=== PATIENT | female | born 1975 | race African-American/Black ===

== ENCOUNTER 2019-09-06 08:11 | Emergency (ER) | payer OTHER ==
[~2019-09-06] VITALS: Ht 167.6 cm; Wt 86.2 kg
--- NOTE | 2019-09-06 07:15 | NUR ---
Rapid resp note:Called for unresponsive pt in outpatient waiting room. Upon arrival, Dr Goss present holding airway open and pt unresponsive to sternal rub. Strong pulse present 100%NRB placed and pt quickly transferred to cart and taken to ER where they started IV and gave Narcan IV. Pt proceeded to wake up, DAILY, able to state name and date. ER will resume care
--- NOTE | 2019-09-06 08:23 | PHYS DOC ---
Adult General Chief Complaint Chief Complaint: ALTERED MENTAL STATUS HPI HPI Patient is a 43 year old female who brought in because of unresponsiveness. Patient had dental procedure yesterday and took pain medication last night. Patient brought her mother to GI lab for procedure and was sitting in the chair in the waiting area and became unresponsive with O2 sat of 80% and oxygen was started. Patient was unresponsive and had O2 sat of 100% on facial mask. Review of Systems Review of Systems Unable to obtain because of unresponsiveness Current Medications Current Medications Current Medications Medications (Trade) Dose Ordered Sig/Jaxon Start Time Stop Time Status Last Admin Dose Admin Naloxone HCl (Narcan) 0.4 mg 1X ONCE 09/06/19 10:00 09/06/19 10:01 DC 09/06/19 10:17 0.4 MG Sodium Chloride 1,000 ml @ 1,000 mls/hr 1X ONCE 09/06/19 09:30 09/06/19 10:29 DC 09/06/19 09:47 1,000 MLS/HR Allergies Allergies Allergies Coded Allergies Type Severity Reaction Last Updated Verified No Known Drug Allergies 09/06/19 No Physical Exam Physical Exam Constitutional: Well nourished, unresponsive. HENT: Normocephalic, atraumatic. Eyes: Pinpoint pupils. Neck: Normal range of motion, no tenderness, supple, no stridor. [] Cardiovascular:Heart rate regular rhythm, no murmur [] Lungs & Thorax: Bilateral breath sounds clear to auscultation [] Abdomen: Bowel sounds normal, soft. Skin: Warm, dry, no erythema, no rash. [] Extremities: No obvious deformity Neurologic: Unresponsive, no respond to painful stimuli Psychologic: Unable to evaluate Current Patient Data Vital Signs Vital Signs Date Time Temp Pulse Resp B/P (MAP) Pulse Ox O2 Delivery O2 Flow Rate FiO2 09/06/19 10:00 94 14 98 09/06/19 08:11 97.0 133/82 (99) NonRebreather Mask 15.0 97.0 Lab Values Laboratory Tests Test 09/06/19 08:14 09/06/19 08:15 09/06/19 08:55 09/06/19 10:43 Glucose (Fingerstick) 285 mg/dL (70-99) H 94 mg/dL (70-99) White Blood Count 11.2 x10^3/uL (4.0-11.0) H Red Blood Count 5.08 x10^6/uL (3.50-5.40) Hemoglobin 9.6 g/dL (12.0-15.5) L Hematocrit 32.3 % (36.0-47.0) L Mean Corpuscular Volume 64 fL (79-100) L Mean Corpuscular Hemoglobin 19 pg (25-35) L Mean Corpuscular Hemoglobin Concent 30 g/dL (31-37) L Red Cell Distribution Width 19.6 % (11.5-14.5) H Platelet Count 662 x10^3/uL (140-400) H Neutrophils (%) (Auto) 57 % (31-73) Lymphocytes (%) (Auto) 37 % (24-48) Monocytes (%) (Auto) 3 % (0-9) Eosinophils (%) (Auto) 2 % (0-3) Basophils (%) (Auto) 1 % (0-3) Neutrophils # (Auto) 6.4 x10^3/uL (1.8-7.7) Lymphocytes # (Auto) 4.1 x10^3/uL (1.0-4.8) Monocytes # (Auto) 0.4 x10^3/uL (0.0-1.1) Eosinophils # (Auto) 0.2 x10^3/uL (0.0-0.7) Basophils # (Auto) 0.1 x10^3/uL (0.0-0.2) Platelet Estimate Increased (ADEQUATE) Hypochromasia Present Microcytosis Present Sodium Level 141 mmol/L (136-145) Potassium Level 3.6 mmol/L (3.5-5.1) Chloride Level 103 mmol/L (98-107) Carbon Dioxide Level 26 mmol/L (21-32) Anion Gap 12 (6-14) Blood Urea Nitrogen 7 mg/dL (7-20) Creatinine 1.1 mg/dL (0.6-1.0) H Estimated GFR (Cockcroft-Gault) 54.0 BUN/Creatinine Ratio 6 (6-20) Glucose Level 313 mg/dL (70-99) H Calcium Level 8.9 mg/dL (8.5-10.1) Magnesium Level 2.2 mg/dL (1.8-2.4) Total Bilirubin 0.1 mg/dL (0.2-1.0) L Aspartate Amino Transferase (AST) 17 U/L (15-37) Alanine Aminotransferase (ALT) 12 U/L (14-59) L Alkaline Phosphatase 78 U/L (46-116) Creatine Kinase 267 U/L (26-192) H Troponin I Quantitative < 0.017 ng/mL (0.000-0.055) Total Protein 7.6 g/dL (6.4-8.2) Albumin 3.8 g/dL (3.4-5.0) Albumin/Globulin Ratio 1.0 (1.0-1.7) Ethyl Alcohol Level < 10 mg/dL (0-10) Urine Collection Type U cath Urine Color Yellow Urine Clarity Clear Urine pH 7.0 Urine Specific [place] 1.015 Urine Protein Negative mg/dL (NEG-TRACE) Urine Glucose (UA) 500 mg/dL (NEG) Urine Ketones (Stick) Negative mg/dL (NEG) Urine Blood Negative (NEG) Urine Nitrite Negative (NEG) Urine Bilirubin Negative (NEG) Urine Urobilinogen Dipstick 0.2 mg/dL (0.2 mg/dL) Urine Leukocyte Esterase Negative (NEG) Urine RBC Occ /HPF (0-2) Urine WBC 1-4 /HPF (0-4) Urine Squamous Epithelial Cells Many /LPF Urine Bacteria Few /HPF (0-FEW) Urine Hyaline Casts Moderate /HPF Urine Mucus Marked /LPF Urine Opiates Screen Neg (NEG) Urine Methadone Screen Neg (NEG) Urine Barbiturates Neg (NEG) Urine Phencyclidine Screen Neg (NEG) Urine Amphetamine/Methamphetamine Neg (NEG) Urine Benzodiazepines Screen Neg (NEG) Urine Cocaine Screen Neg (NEG) Urine Cannabinoids Screen Neg (NEG) Urine Ethyl Alcohol Neg (NEG) Laboratory Tests 09/06/19 08:15 Laboratory Tests 09/06/19 08:15 EKG EKG [] Radiology/Procedures Radiology/Procedures [] Course & Med Decision Making Course & Med Decision Making Pertinent Labs reviewed. (See chart for details) Evaluation of patient in ER showed 43-year-old female patient brought in from outpatient clinic as a visitor because of unresponsive condition. Patient treated with Narcan in ER improvement of her condition and become alert and oriented. Labs showed blood sugar of 313 without history of diabetes mellitus. She also had hemoglobin of 9.6 and history of heavy vaginal bleeding. Patient was advised to follow-up with her primary care physician regarding her anemia and her glycemia. Patient was advised to stop taking Percocet and take over -the-counter Tylenol and ibuprofen as needed for pain. Patient was advised to continue amoxicillin given by her dentist. I've spoken with the patient and/or caregivers. I've explained the patient's condition, diagnosis and treatment plan based on information available to me at this time. I've answered the patient's and/or caregivers questions and addressed any concerns. The patient and/or caregivers have a good understanding the patient's diagnosis, condition and treatment plan as can be expected at this point. Vital signs have been stabilized. The patient's condition is stable for discharge from the emergency department. The patient will pursue further outpatient evaluation with her primary care provider or other designated consulting physician as outlined in the discharge instructions. Patient and/or caregivers are agreeable to this plan of care and follow-up instructions have been explained in detail. The patient and/or caregivers have received these instructions in written format and expressed understanding of these discharge instructions. The patient and her caregivers are aware that if any significant change in condition or worsening of symptoms should prompt him to immediately return to this of the closest emergency department. If an emergent department is not readily available I would encourage him to call 911. Dragon Disclaimer Dragon Disclaimer This electronic medical record was generated, in whole or in part, using a voice recognition dictation system. Departure Departure Impression: Primary Impression: Unresponsive episode Additional Impressions: Opiate overdose Hyperglycemia Anemia Disposition: HOME, SELF-CARE (at 1046) Referrals: BLANQUITA PRATHER MD (PCP) Patient Instructions: 1800 Calorie Diet for Diabetes Meal Planning, Diabetes an d Exercise-SportsMed, Diabetes and Foot Care, Hyperglycemia, Narcotic Overdose, Overdose, Accidental Additional Instructions: Drink plenty of liquids Follow-up with your primary care physician is a scheduled next week Return to ER if not getting better Do not take oxycodone Scripts Metformin Hcl (METFORMIN HCL) 500 Mg Tablet 500 MG PO BIDWMEALS for ANTI-DIABETIC, #60 TAB 0 Refills Prov: CHINO GRULLON MD 09/06/19 Critical Care Time Critical care time was 70 minutes exclusive of procedures. Problem Qualifiers Additional Impressions: Opiate overdose Encounter type: initial encounter Injury intent: accidental or unintentional Qualified Codes: T40.601A - Poisoning by unspecified narcotics, accidental (unintentional), initial encounter Anemia Anemia type: unspecified type Qualified Codes: D64.9 - Anemia, unspecified CHINO GRULLON MD Sep 06, 2019 08:23
[2019-09-06 08:28] LABS: BASO # 0.1 x10^3/uL (0.0-0.2); BASO % 1 % (0-3); EOS # 0.2 x10^3/uL (0.0-0.7); EOS % 2 % (0-3); HEMATOCRIT 32.3 % (36.0-47.0); HEMOGLOBIN 9.6 g/dL (12.0-15.5); LYMPH # 4.1 x10^3/uL (1.0-4.8); LYMPH % 37 % (24-48); MEAN CORPUSCULAR HEMOGLOBIN 19 pg (25-35); MEAN CORPUSCULAR HGB CONC 30 g/dL (31-37); MEAN CORPUSCULAR VOLUME 64 fL (79-100); MONO # 0.4 x10^3/uL (0.0-1.1); MONO % 3 % (0-9); NEUT # 6.4 x10^3/uL (1.8-7.7); NEUT % 57 % (31-73); PLATELET COUNT 662 x10^3/uL (140-400); RED BLOOD COUNT 5.08 x10^6/uL (3.50-5.40); RED CELL DISTRIBUTION WIDTH 19.6 % (11.5-14.5); WHITE BLOOD COUNT 11.2 x10^3/uL (4.0-11.0)
[2019-09-06] MEDS ORDERED: NALOXONE 0.4 MG/ML VIAL. IV ONE ×2 (08:30→10:00)
[2019-09-06] MEDS ORDERED: IV NORMAL SALINE 1000ML BAG 1,000 ML IV ONE ×2 (08:30→09:30)
[2019-09-06 08:38] LABS: CALCIUM 8.9 mg/dL (8.5-10.1); CREATININE 1.1 mg/dL (0.6-1.0); POTASSIUM 3.6 mmol/L (3.5-5.1)
[2019-09-06 08:45] LABS: ALBUMIN 3.8 g/dL (3.4-5.0); MAGNESIUM 2.2 mg/dL (1.8-2.4); TOTAL BILIRUBIN 0.1 mg/dL (0.2-1.0); TOTAL PROTEIN 7.6 g/dL (6.4-8.2)
[2019-09-06 09:10] LABS: BILIRUBIN,URINE NEGATIVE (NEG); CLARITY,URINE CLEAR; COLOR,URINE YELLOW; NITRITE,URINE NEGATIVE (NEG); PROTEIN,URINE NEGATIVE (NEG-TRACE); UROBILINOGEN,URINE 0.2 mg/dL (0.2 mg/dL)
[2019-09-06 09:20] LABS: HYALINE CASTS, URINE MODERATE /HPF; SQUAMOUS EPITHELIAL CELL,UR MANY /LPF
[2019-09-06 09:21] LABS: RBC,URINE OCC /HPF (0-2)
[2019-09-06 09:22] LABS: BACTERIA,URINE FEW /HPF (0-FEW)
[2019-09-06 09:30] LABS: BARBITURATES NEG (NEG); BENZODIAZEPINES NEG (NEG); CANNABINOIDS NEG (NEG); COCAINE NEG (NEG); METHADONE NEG (NEG); OPIATES NEG (NEG); PHENCYCLIDINE NEG (NEG)
[2019-09-06 09:36] LABS: AMPHETAMINE/METHAMPHETAMINE NEG (NEG)
[2019-09-06 10:30] VITALS: BP 165/72
[2019-09-06 10:44] LABS: PLT ESTIMATE INCREASED (ADEQUATE)
[2019-09-06 10:45] LABS: HYPOCHROMIA PRESENT; MICROCYTOSIS PRESENT
[2019-09-06] MEDS ORDERED: METF500T16 PO (10:48)
== END 2019-09-06 11:00 | disposition home or self-care (01) ==
LOC: ER 08:11
DX: T40.601A Poisoning by unspecified narcotics, accidental (unintentional), initial encounter (principal); R41.82 Altered mental status, unspecified; R73.9 Hyperglycemia, unspecified; D64.9 Anemia, unspecified; Y92.89 Other specified places as the place of occurrence of the external cause
CPT/HCPCS: 36415; 80053; 80307; 81001; 82550; 82962; 83735; 84484; 85025; 96361; 96374; 99291; G0480; J2310; J7030

== ENCOUNTER 2021-08-14 18:03 | Emergency (ER) | payer OTHER ==
[~2021-08-14] VITALS: Ht 157.5 cm; Wt 97.0 kg
[~2021-08-14 18:03] MED LIST: METF500T16 PO
[2021-08-14 18:32] VITALS: BP 174/86
[2021-08-14] MEDS ORDERED: methylPREDNISolone SOD SUCC PF 125 MG/2 ML VIAL. IM ONE (20:30)
[2021-08-14 20:55] LABS: CREATININE 0.7 mg/dL (0.6-1.0); POTASSIUM 3.5 mmol/L (3.5-5.1)
[2021-08-14 21:01] LABS: ALBUMIN 3.6 g/dL (3.4-5.0); ALBUMIN/GLOBULIN RATIO 0.9 (1.0-1.7); TOTAL BILIRUBIN 0.1 mg/dL (0.2-1.0); TOTAL PROTEIN 7.6 g/dL (6.4-8.2)
--- NOTE | 2021-08-14 21:10 | PHYS DOC ---
Past Medical History Past Medical History: Unknown Past Surgical History: No Surgical History, Other Additional Past Surgical Histo: dental Smoking Status: Unknown if ever smoked Drug Use: None General Adult EDM: Chief Complaint: SKIN RASH/ABSCESS HPI: HPI: Patient is a 45 year [id number] female presents with a chief complaint of diffuse rash associated with itch and paresthesia bilateral lower extremities. Rash has been ongoing for several weeks. Patient has been taking rwcc-lww-tcroven antihistamine with no relief. Patient states itch is worse at night. Several diffuse small hives bilateral arms back and lower extremities. Patient unaware of any new detergent or foods that may be triggering. Patient has been evaluated by her primary care physician for this. Patient also compl ains of bilateral lower extremity paresthesia patient has no focal weakness on exam. She ambulated into the ER with a steady gait. Review of Systems: Review of Systems: Review of systems: Constitutional symptoms- No fever, no chills. Eyes- No Discharge, No Visual Loss Respiratory symptoms- No shortness of breath, No wheezing, No Dyspnea on Exertion Cardiovascular Systems; No chest pain, No Palpitations, No syncope Gastrointestinal symptoms: NO abdominal pain, no nausea, no vomiting or diarrhea. Genitourinary symptoms: No dysuria. Musculoskeletal symptoms: No back pain No extremity pain. NEUROLOGICAL Symptoms: No headache, no generalized weakness; No focal Weakness positive paresthesia Skin: Positive rash. Positive itch Heart Score: C/O Chest Pain: N/A Risk Factors: Risk Factors: DM, Current or recent (<one month) smoker, HTN, HLP, family history of CAD, obesity. Risk Scores: Score 0 - 3: 2.5% MACE over next 6 weeks - Discharge Home Score 4 - 6: 20.3% MACE over next 6 weeks - Admit for Clinical Observation Score 7 - 10: 72.7% MACE over next 6 weeks - Early Invasive Strategies Current Medications: Current Medications Medications (Trade) Dose Ordered Sig/Jaxon Start Time Stop Time Status Last Admin Dose Admin Methylprednisolone Sodium Succinate (SOLU-Medrol 125MG VIAL) 125 mg 1X ONCE 08/14/21 20:30 08/14/21 20:31 DC Allergies: Allergies: Allergies Coded Allergies Type Severity Reaction Last Updated Verified acetaminophen Allergy Severe 09/06/19 Yes oxycodone Allergy Severe 09/06/19 Yes Iodine and Iodide Containing Produc Allergy Intermediate 10/16/19 Yes Physical Exam: PE: General: alert, no acute distress. Skin: warm, dry and intact, no erythema, diffuse hives HENT: bilateral external ears normal, oropharynx moist, nose normal. Head:: Normocephalic, atraumatic. Neck: Trachea midline. Eyes: EOMI, Normal conjunctiva, No drainage CARDIOVASCULAR: Regular rate and rhythm RESPIRATORY: No respiratory distress Back: Full range of motion. MUSCULOSKELETAL: Full range of motion of bilateral upper and lower extremities. GASTROINTESTINAL: Abdomen soft without rebound or guarding. NEUROLOGICAL: Alert and noted to person, place and time. No neurological deficits observed Psychiatric: Cooperative. Normal judgment Current Patient Data: Labs: Laboratory Tests Test 08/14/21 20:29 Sodium Level 140 mmol/L (136-145) Potassium Level 3.5 mmol/L (3.5-5.1) Chloride Level 104 mmol/L (98-107) Carbon Dioxide Level 30 mmol/L (21-32) Anion Gap 6 (6-14) Blood Urea Nitrogen 6 mg/dL (7-20) L Creatinine 0.7 mg/dL (0.6-1.0) Estimated GFR (Cockcroft-Gault) 109.0 BUN/Creatinine Ratio 9 (6-20) Glucose Level 105 mg/dL (70-99) H Calcium Level 9.0 mg/dL (8.5-10.1) Total Bilirubin Pending Aspartate Amino Transferase (AST) Pending Alanine Aminotransferase (ALT) Pending Alkaline Phosphatase Pending Total Protein Pending Albumin Pending Albumin/Globulin Ratio Pending Laboratory Tests 08/14/21 20:29 Vital Signs: Vital Signs Date Time Temp Pulse Resp B/P (MAP) Pulse Ox O2 Delivery O2 Flow Rate FiO2 08/14/21 18:32 98.8 86 174/86 (115) 100 98.8 EKG: EKG: [] Radiology/Procedures: Radiology/Procedures: [] Course & Med Decision Making: Course & Med Decision Making Pertinent Labs and Imaging studies reviewed. (See chart for details) [] Treated with Solu-Medrol. Patient prescribed prednisone and and Pepcid. Patient advised to continue using Atarax as prescribed by her primary care physician. Patient advised to follow-up with her primary care physician for reevaluation Fred Disclaimer: Fred Disclaimer: This electronic medical record was generated, in whole or in part, using a voice recognition dictation system. Departure Departure Impression: Primary Impression: Rash Additional Impression: Paresthesia Disposition: HOME / SELF CARE / HOMELESS Condition: STABLE Referrals: UNKNOWN PCP NAME (PCP) Patient Instructions: Paresthesia, Rash Scripts Famotidine (PEPCID) 40 Mg Tablet 40 MG PO HS, #14 TAB Prov: FREDY HARRISON I DO 08/14/21 Prednisone (PREDNISONE) 50 Mg Tablet 1 TAB PO DAILY, #5 TAB Prov: FREDY HARRISON DO 08/14/21 FREDY HARRISON DO Aug 14, 2021 21:10
[2021-08-14] MEDS ORDERED: FAMO40TA57 PO (21:20)
[2021-08-14] MEDS ORDERED: PRED50TA PO (21:20)
== END 2021-08-14 21:40 | disposition home or self-care (01) ==
LOC: ER 18:03
DX: R21 Rash and other nonspecific skin eruption (principal); R20.2 Paresthesia of skin; L29.8 Other pruritus
CPT/HCPCS: 36415; 80053; 96372; 99283; J2930